=== PATIENT | female | born 1980 | race Caucasian/White ===

== ENCOUNTER 2017-12-31 20:41 | Emergency (ER) | payer OTHER, MEDICAID, SELFPAY ==
[2017-12-31 20:45] VITALS: BP 128/84; PULSE 80; RESP 20; TEMP 37; O2SAT 100; BMI 31.9
[2017-12-31] MEDS: DOXYCYCLINE HYCLATE 100 MG TABLET PO (21:57)
[2017-12-31 22:03] VITALS: BP 124/78; PULSE 80; RESP 16; O2SAT 97
[2017-12-31 22:18] VITALS: BP 128/86; PULSE 89; RESP 16; O2SAT 99
--- NOTE | 2018-01-02 03:45 | ED_ITS ---
HPI - Skin/Abscess/Foreign Bdy General Chief complaint: Skin/Abscess/Foreign Body Stated complaint: STATES SKIN INFECTION Time Seen by Provider: 12/31/17 20:51 Source: patient and family Mode of arrival: ambulatory Limitations: no limitations History of Present Illness HPI narrative: Patient presents to the emergency department today with a chief complaint of a painful, spontaneously draining, chronic ?abscess ?in her left groin. She has had it evaluated by physicians on multiple occasions and most recently had an incision and drainage a few days ago. They had apparently developed a difficulty with the culture and it was never collected or evaluated. She has had this abscess in the exact same spot on multiple occasions, raising the question of the possibility infected cyst. She denies systemic findings such as fever, chills or other. She denies other skin infections but is sure she has been in contact with known MRSA carrier Onset (ago): month(s) Tetanus up to date: yes Location: genitals (Left groin) Severity: mild Quality: burning Relieving factors: none Exacerbating factors: none Context: none Associated symptoms: denies other symptoms Treatments prior to arrival: attempted to drain pus at home and antibiotic Related Data Previous Rx's Medication Instructions Recorded doxycycline hyclate 100 mg PO BID #14 tab 12/31/17 Allergies Allergy/AdvReac Type Severity Reaction Status Date / Time codeine Allergy Verified 12/31/17 21:57 meperidine [From Demerol] Allergy Verified 12/31/17 21:57 Review of Systems Review of Systems All systems reviewed & are unremarkable except as noted in HPI and below Constitutional Denies chills, Denies fever(s), Denies lethargy and Denies weakness Eyes Denies change in vision, Denies eye discharge, Denies irritation and Denies loss of vision ENT Ears, Nose, Mouth, and Throat: Denies change in voice, Denies neck pain and Denies sore throat Cardiovascular Denies chest pain, Denies irregular heart rhythm, Denies lightheadedness, Denies palpitations, Denies dyspnea, Denies dyspnea on exertion and Denies orthopnea Respiratory Denies cough, Denies dyspnea, Denies dyspnea on exertion and Denies wheezing Gastrointestinal Gastrointestinal: Denies abdominal pain, Denies change in bowel habits, Denies diarrhea, Denies nausea and Denies vomiting Genitourinary Denies hematuria, Denies flank pain, Denies urinary incontinence and Denies urinary urgency Musculoskeletal Denies neck pain Integumentary/Breasts Denies pruritus, Reports erythema, Denies rash, Reports skin pain, Reports skin swelling, Reports sores and Denies wounds Neurologic Denies confusion, Denies loss of vision and Denies weakness Psychiatric Denies anxiety, Denies confusion, Denies depression, Denies homicidal ideation and Denies suicidal ideation Endocrine Denies palpitations Hematologic/Lymphatic Denies easy bruising Allergic/Immunologic Denies wheezing Exam Narrative Exam Narrative: GEN: AOx3 and in mild distress EYES: Pupils are equal, round, and reactive to light and accommodation. Extraoccular muscles are intact bilaterally. There is no subconjunctival hemorrhage or exudate. CHEST: Lungs are clear to auscultation bilaterally and free of wheezes, rales, or rhonchi. Heart rate is regular rhythm, there are no murmurs, clicks, rubs, or gallops. There is no chest wall tenderness. ABD: Abdomen is soft and nontender. There is no guarding or rebound. Bowel sounds are normal in all 4 quadrants. There is no mass or organomegaly. EXT: Full painless ROM of all extremities with no loss of sensation or strength. SKIN: Small 1 cm spontaneously draining infected ulcer in her left groin Initial Vital Signs Initial Vital Signs: Vital Signs Temperature 98.6 F 12/31/17 20:45 Pulse Rate 80 12/31/17 20:45 Respiratory Rate 20 12/31/17 20:45 Blood Pressure 128/84 H 12/31/17 20:45 Pulse Oximetry 100 12/31/17 20:45 Procedures Abscess I/D Site: other (Left groin) Local Anesthetic: lidocaine 1% and with bicarb Amount of anesthesia used (mL): 3 Technique: incised with #11 blade Amount of fluid expressed (mL): 1 Irrigation: No Packing used?: none Course Orders Ordered: Discontinued Medications Doxycycline Hyclate (Vibramycin) 100 mg PO NOW ONE Stop: 12/31/17 21:41 Last Admin: 12/31/17 21:57 Dose: 100 mg Discharge Plan Departure Patient Disposition: Home Clinical Impression: Abscess of skin or subcutaneous tissue Discharge Date/Time: 12/31/17 22:19 Interventions: ED Discharge Assessment Last Done: 12/31/17 22:18 Instructions: DI for Incision and Drainage of a Skin Abscess Activity Restrictions/Additional Instructions: *You have been diagnosed with [ chronic recurring infected cyst left groin ] *What to do: *Take medications as directed *Follow up with [facility], call for an appointment. Let them know you were seen in the Emergency Department and that we ask that you be seen in follow up *Return to ER if you should have any new, worsening or concerning symptoms , such as [increasing pain, redness, fever over 101F or other bothersome symptoms ] Prescriptions: New doxycycline hyclate 100 mg tablet 100 mg PO BID Qty: 14 RF: 0 Referrals: Kevin Bobby MD [Physician] -
== END 2017-12-31 22:19 | disposition home or self-care (01) ==
PROVIDERS: Emergency Provider Emergency Medicine
DX: L02.214 Cutaneous abscess of groin (principal)
CPT/HCPCS: 10060; 87070; 87075; 87205; 99282

== ENCOUNTER 2018-01-21 07:57 | Day surgery (SDC) | payer OTHER, MEDICAID, SELFPAY ==
[2018-01-14 13:50] VITALS: BMI 31.9
[2018-01-21] VITALS (8 sets, daily range): BP systolic 110–136; BP diastolic 71–86; PULSE 69–84; RESP 10–18; TEMP 36.6–37; O2SAT 76–100; BMI 31.9
--- NOTE | 2018-01-21 | PATH_ITS ---
[facility] Accession Number: [id number] . 01 Material submitted: . LEFT GROIN LESION . 01 Diagnosis: Left Groin, Excision: Scar, chronic inflammation, and focal fat necrosis. . Note: While nonspecific, the changes could be secondary to a ruptured cyst or folliculitis, or hidradenitis suppurativa. Clinical pathological correlation is advised. MRV/01/28/2018 . 01 Electronically signed: . Sruthi Glez MD, Dermatopathologist NPI- [id number] . 01 Gross description: . Received in formalin, labeled left groin lesion, is an ellipse of maya smooth shiny skin with underlying tissue (3.0 cm 12 o'clock to 6 o'clock, 1.5 cm 3 o'clock to 9 o'clock, 1.0 cm superficial to deep) oriented with two white sutures (short-superior, long-lateral). The sutures are redesignated as long-12 o'clock and short-9 o'clock by the pathologist's blood and plasma laboratory assistant for grossing purposes. An irregularly firm area (0.8 x 0.3 cm) is identified 0.5 cm from the 12 o'clock, 0.1 cm from the 3 o'clock, 0.9 cm from the 6 o'clock, and less than 0.1 cm from the 9 o'clock resection margins. Ink code: yellow-12 o'clock to 3 o'clock; blue-3 o'clock to 6 o'clock; black-6 o'clock to 9 o'clock to 12 o'clock. Section code: (A1) 12 o'clock and 6 o'clock tips; (A2-A3) remaining ellipse, serially sectioned and submitted 12 o'clock to 6 o'clock into five slices. ([id number]) /MRV . 01 Pathologist provided ICD-10: L98.9 . 01 CPT . 770206 Performed at: [address] [facility][note 3], [place], [place] [id number] MD Dixon Rodriguez MD Phone: [phone]
--- NOTE | 2018-01-21 08:56 | PM.PREOP ---
Pre-operative Note Interval Note Pre-op Check: Yes History & Physical Reviewed by Physician and Yes Exam Performed Changes: No H&P completed within 30 days and has changed as indicated here:: Patient seen and examined in the preoperative area. She has marked for surgery. History physical examination as documented on the chart January 08, 2018 has not changed. Proceed with excision of left groin mass today as planned.
[2018-01-21] MEDS: LACTATED RINGERS 1,000 ML 100 ML IV (09:05)
[2018-01-21] MEDS: MIDAZOLAM 2 MG/2 ML VIAL IV (09:13)
[2018-01-21] MEDS: CEFAZOLIN 2 GM/100 ML FROZ.PIGGY IV (09:25)
[2018-01-21] MEDS: BUPIVACAINE 0.5% (PF) VIAL 30 ML INJ (09:56)
--- NOTE | 2018-01-21 10:23 | PM.OP.1 ---
Operative Date/Time/Diagnoses Date of procedure: 01/21/18 Time of procedure: 10:23 Pre-op diagnosis: Chronic abscess left inguinal region Post-op diagnosis: same Procedure & Clinicians Procedure: Wide local excision of left inguinal chronic abscess with total defect measuring 3 x 1 x 1 cm Same procedure as scheduled: Yes Indications: 37-year-old female with chronically recurring draining cavity and sinus track in the left inguinal skin fold. Examination and evaluation were consistent with potential cyst versus chronic abscess cavity. Wide local excision was recommended. Surgeon: Kevin Bobby Click Yes if Unassisted: Yes Anesthesia Type: General Operative Notes Findings: 1. Chronic sinus tract from skin into abscess cavity located in the subcutaneous tissue of the left inguinal region 2. No gross pus, granulation, or induration beyond the limits of the cavity Closure Type: primary Specimen(s): other (Left chronic abscess cavity) Implants & Drains: None Estimated Blood Loss (mL): 5 Blood products transfused: none Procedure in detail: After obtaining informed consent the patient was brought to the operating room and placed supine on the table. After satisfactory induction of anesthesia the left leg was abducted with the knee bent and padded appropriately to provide adequate exposure of the lesion in the left inguinal skin crease. There was no erythema or induration. Lesion was again identified and had been marked preoperatively as well. No surrounding lesions were identified. A SCOAP time-out was performed per standard protocol. Abdomen, left inguinal region, and genitalia were prepped and draped in usual sterile fashion. Elliptical skin incision was designed around the sinus tract and the skin was incised with 15 scalpel blade. Bovie was used to achieve hemostasis in the subcutaneous tissue. Sharp dissection with Metzenbaum scissors carried the dissection deep to the subcutaneous tissue to completely encircle the lesion with a rim of normal tissue. Lesion was excised, oriented, and sent for permanent section. Hemostasis was again achieved with the Bovie. Wound was irrigated with copious amounts of sterile saline solution. Palpation of the cavity revealed no other adjacent lesions or abnormalities. Area was infiltrated with a total of 30 cc of 0.5% plain Marcaine for postoperative analgesia. Hemostasis was again verified. Subcutaneous tissue was reapproximated with interrupted 3 0 Vicryl suture. Skin was closed with running 4 0 Monocryl suture in a subcuticular fashion. Dermal adhesive was applied. Dry gauze was placed over the lesion along with a mesh undergarment to hold it in place. Anesthesia was reversed and patient extubated in the operating room. She was taken recovery in stable condition. Complications: none Condition: stable Disposition: PACU Plan for aftercare: 1. Discharge to home 2. Follow up in surgery Clinic in 2 weeks
== END 2018-01-21 11:14 | disposition home or self-care (01) ==
PROVIDERS: Visit Provider Surgery
PROC: (CPT 27043; principal; 2018-01-21 09:15)
DX: L98.9 Disorder of the skin and subcutaneous tissue, unspecified (principal)
CPT/HCPCS: 27043; 88305; J0690; J1100; J2250; J2405; J2704; J3010